=== PATIENT | female | born 1930 | race Caucasian/White ===

== ENCOUNTER 2020-05-24 15:01 | Emergency (ER) | payer MEDICARE, OTHER ==
[2020-05-24] MEDS ORDERED: Diphtheria,Pertussis(Acell),Tetanus Vaccine 0.5 ML Syringe IM ONE (16:10)
[2020-05-24] MEDS ORDERED: Lidocaine 1% 10 ML MDV INJECT ONE (16:10)
--- NOTE | 2020-05-24 16:17 | EDM.PDOC ---
ED HPI GENERAL MEDICAL PROBLEM - General Chief Complaint: Laceration Stated Complaint: HEAD LAC Time Seen by Provider: 05/24/20 15:39 Source of Information: Reports: Patient, RN Notes Reviewed History Limitations: Reports: No Limitations - History of Present Illness INITIAL COMMENTS - FREE TEXT/NARRATIVE: Patient is an 89-year-old female who presents to the ED for a head laceration. The patient states that she fell in her bedroom at roughly 3 AM this morning, she states that she notes she has an issue getting dizzy when she gets up in the middle the night, and this happened last night. She states that she struck her head on the corner of the dresser, she is not having pain anywhere else, she has no headache, no blurred vision or double vision, or no other focal neurological abnormalities appreciated. She has a 3 cm linear laceration on her left frontal forehead, that starts near the hairline, and extends downward in an oblique fashion. Bleeding is controlled at this time, patient states she does take a baby aspirin, but she had not taken any of this in the past 2 days. She was not going to come for any sort of management, but her son come to visit her today, and brought her to the ER to have this fixed. She is not sure of her last tetanus booster, but would take one today if warranted. She was offered a flu vaccine, but states she will follow-up with her providers at the [facility] for this. She is feeling well otherwise, no fevers or chills, cough or shortness of breath, nausea or vomiting or diarrhea. - Related Data Allergies Allergy/AdvReac Type Severity Reaction Status Date / Time No Known Allergies Allergy Verified 05/24/20 15:43 Home Meds: Home Meds Amitriptyline [Elavil] 10 mg PO BEDTIME 05/24/20 [History] Levothyroxine [Synthroid] 50 mcg PO DAILY 05/24/20 [History] Megestrol [Megace] 20 mg PO ASDIRECTED 05/24/20 [History] Metoprolol Succinate [Toprol XL] 12.5 mg PO BID 05/24/20 [History] Potassium Chloride 10 meq PO ASDIRECTED 05/24/20 [History] Tamoxifen [Nolvadex] 1 tab PO ASDIRECTED 05/24/20 [History] Past Medical History Cardiovascular History: Reports: High Cholesterol, Hypertension Gastrointestinal History: Reports: Chronic Constipation Musculoskeletal History: Reports: Back Pain, Chronic Endocrine/Metabolic History: Reports: Hypothyroidism Oncologic (Cancer) History: Reports: Uterine - Past Surgical History HEENT Surgical History: Reports: Cataract Surgery GI Surgical History: Reports: Appendectomy Female Surgical History: Reports: Hysterectomy Social & Family History - Tobacco Use Tobacco Use Status *Q: Never Tobacco User - Caffeine Use Caffeine Use: Reports: Coffee - Recreational Drug Use Recreational Drug Use: No ED ROS GENERAL - Review of Systems Review Of Systems: Comprehensive ROS is negative, except as noted in HPI. ED EXAM, SKIN/RASH Exam: See Below Exam Limited By: No Limitations General Appearance: Alert, WD/WN, No Apparent Distress Eye Exam: Bilateral Eye: EOMI, Normal Inspection, PERRL Ears: Normal External Exam, Normal Canal, Hearing Grossly Normal, Normal TMs Head: Normocephalic Neck: Normal Inspection, Supple, Non-Tender, Full Range of Motion Respiratory/Chest: No Respiratory Distress, Lungs Clear, Normal Breath Sounds, No Accessory Muscle Use, Chest Non-Tender Cardiovascular: Normal Peripheral Pulses, Regular Rate, Rhythm, No Murmur Extremities: Normal Inspection, Normal Capillary Refill Neurological: Alert, Oriented, Normal Cognition, No Motor/Sensory Deficits Psychiatric: Normal Affect, Normal Mood Skin: Warm, Dry, Normal Color, No Rash, Wound/Incision (3 cm linear laceration on the left forehead, starting at the hairline and running in an oblique fashion down the patient's forehead.) ED SKIN PROCEDURES - Laceration/Wound Repair Left Upper Face Appearance: Subcutaneous, Clean Distal NVT: Neuro & Vascular Intact, No Tendon Injury Anesthetic Type: Local Local Anesthesia - Lidocaine (Xylocaine): 1% Plain Local Anesthetic Volume: 4cc Skin Prep: Chlorhexidine (Hibiciens), Saline Exploration/Debridement/Repair: Wound Explored, In a Bloodless Field, Explored to Base, No Foreign Material Found Closed with: Sutures Lac/Wound length In cm: 3 Suture Size: 5-0 # of Sutures: 7 Suture Type: Prolene, Interrupted, Simple Sterile Dressing Applied: Nurse Tetanus Status Addressed: Yes Complications: No Course - Vital Signs Last Recorded V/S: Last Vital Signs Temp 98.2 F 05/24/20 15:57 Pulse 79 05/24/20 15:57 Resp 20 05/24/20 15:57 BP 153/91 H 05/24/20 15:57 Pulse Ox 99 05/24/20 15:57 - Orders/Labs/Meds Orders: Active Orders 24 hr Category Date Time Status Vaccines to be Administered [RC] PER UNIT ROUTINE Care 05/24/20 16:10 Ordered Meds: Medications Discontinued Medications Generic Name Dose Route Start Last Admin Trade Name Rick PRN Reason Stop Dose Admin Diphtheria/Tetanus/Acell Pertussis 0.5 ml 05/24/20 16:10 05/24/20 16:18 Adacel IM 05/24/20 16:11 0.5 ml .ONCE ONE Administration Lidocaine HCl 10 ml 05/24/20 16:10 05/24/20 16:20 Xylocaine 1% INJECT 05/24/20 16:11 10 ml ONETIME ONE Administration Departure - Departure Time of Disposition: 16:16 Disposition: Home, Self-Care 01 Condition: Good Clinical Impression: Forehead laceration Qualifiers: Encounter type: initial encounter Qualified Code(s): S01.81XA - Laceration without foreign body of other part of head, initial encounter - Discharge Information *PRESCRIPTION DRUG MONITORING PROGRAM REVIEWED*: No *COPY OF PRESCRIPTION DRUG MONITORING REPORT IN PATIENT SANDRA: No Instructions: Sutured Wound Care, [id number] Referrals: Jada Cartagena PA-C [Primary Care Provider] - Forms: ED Department Discharge Additional Instructions: You have been evaluated in the ED for your laceration. Sutures will need to stay in for 5-7 days. You may return to the ED or any clinic for removal. Please keep this area clean and dry, you may cleanse with regular soap and water. No vigorous scrubbing. Please try to avoid submerging the affected area in water for prolonged periods of time until the sutures are removed. Watch out for signs of infection like increased redness, swelling, pain at the laceration site, or if you should develop any fevers or chills. Please return to ED if your symptoms change or worsen. Sepsis Event Note (ED) - Evaluation Sepsis Screening Result: No Definite Risk - Focused Exam Vital Signs: Vital Signs Temp Pulse Resp BP Pulse Ox 05/24/20 15:57 98.2 F 79 20 153/91 H 99 - My Orders Last 24 Hours: My Active Orders 05/24/20 16:10 Vaccines to be Administered [RC] PER UNIT ROUTINE - Assessment/Plan Last 24 Hours: My Active Orders 05/24/20 16:10 Vaccines to be Administered [RC] PER UNIT ROUTINE
== END 2020-05-24 17:30 | disposition home or self-care (01) ==
LOC: JD.ED 15:01 → SUPCPDRO 15:01 → JD.ED 17:30
DX: S01.81XA Laceration without foreign body of other part of head, initial encounter (principal); I10 Essential (primary) hypertension; E03.9 Hypothyroidism, unspecified; Z79.899 Other long term (current) drug therapy; Z90.89 Acquired absence of other organs; Z90.710 Acquired absence of both cervix and uterus; W19.XXXA Unspecified fall, initial encounter; Y92.003 Bedroom of unspecified non-institutional (private) residence as the place of occurrence of the external cause
CPT/HCPCS: 12013; 90471; 90715; 99282; J2001

== ENCOUNTER 2020-11-27 17:38 | Emergency (ER) | payer MEDICARE, OTHER ==
--- NOTE | 2020-11-27 18:51 | EDM.PDOC ---
ED HPI GENERAL MEDICAL PROBLEM - General Chief Complaint: Head Injury Stated Complaint: FALL/HEAD INJURY Time Seen by Provider: 11/27/20 18:28 Source of Information: Reports: Patient, Family ([id number]) History Limitations: Reports: No Limitations - History of Present Illness INITIAL COMMENTS - FREE TEXT/NARRATIVE: Mrs. Hussein is a most pleasant 89-year-old woman who now presents to the ED after becoming dizzy while getting something out of the refrigerator around 15:30 to 16:00 this afternoon, and falling at home, striking the back of her head. She states that she fell forward, striking her right knee, and is not really sure how she struck the back of her head, but states that she found herself under a table. There was no loss of consciousness. She has a painful bump to the back right of her head, which she would like to have evaluated, and reports that she has a mild headache. She has no other physical complaints. The patient is not on an anticoagulant. She acknowledges that she does not drink a lot of fluid, and states that she does not make a lot of urine. Here in the ED, the patient's initial BP is found to be elevated at 190/91, otherwise, she is hemodynamically stable, afebrile, saturating 99% on room air. She appears to be comfortable, in no distress. Prior to this afternoon, the patient denies having a recent fever, chills, sore throat, ear pain, nasal or sinus congestion, cough, dyspnea, chest pain, palpitations, nausea, vomiting, constipation, diarrhea, abdominal pain, urinary symptoms, recent weight gain or weight loss, recent bloody bowel movements or black bowel movements, recent joint aches, headaches, or rashes. The patient's PCP is ANA Yung. Her Oncologist is in [place]. Head Pain Score (Numeric/FACES): 4 - Related Data Allergies Allergy/AdvReac Type Severity Reaction Status Date / Time No Known Allergies Allergy Verified 11/27/20 17:50 Home Meds: Home Meds Levothyroxine [Synthroid] 75 mcg PO DAILY 05/24/20 [History] Megestrol [Megace] 20 mg PO ASDIRECTED 05/24/20 [History] Metoprolol Succinate [Toprol XL] 12.5 mg PO BID 05/24/20 [History] Potassium Chloride 10 meq PO ASDIRECTED 05/24/20 [History] Tamoxifen [Nolvadex] 1 tab PO ASDIRECTED 05/24/20 [History] atorvaSTATin [Lipitor] 20 mg PO DAILY 11/27/20 [History] nitrofurantoin macrocrystaL [Nitrofurantoin] 1 cap PO Q12H #9 capsule 11/27/20 [Rx] Past Medical History HEENT History: Reports: Hard of Hearing (wears bilateral hearing aids) Cardiovascular History: Reports: High Cholesterol, Hypertension Endocrine/Metabolic History: Reports: Hypothyroidism Oncologic (Cancer) History: Reports: Uterine (s/p hysterectomy, on Tamoxifen) - Past Surgical History HEENT Surgical History: Reports: Cataract Surgery (bilateral) GI Surgical History: Reports: Appendectomy Female Surgical History: Reports: Hysterectomy (complete) Social & Family History - Tobacco Use Tobacco Use Status *Q: Never Tobacco User - Caffeine Use Caffeine Use: Reports: None - Alcohol Use Alcohol Use History: No - Recreational Drug Use Recreational Drug Use: No - Living Situation & Occupation Living situation: Reports: , Alone Occupation: Retired ED ROS GENERAL - Review of Systems Review Of Systems: Comprehensive ROS is negative, except as noted in HPI. GI/Abdominal: Reports: Constipation (chronic) Musculoskeletal: Reports: Back Pain (chronic) ED EXAM, HEAD INJURY - Physical Exam Exam: See Below Exam Limited By: No Limitations General Appearance: Alert, WD/WN, No Apparent Distress Head: Normocephalic, Scalp Hematoma (posterior right, fairly large), Scalp Tenderness (posterior right) Eyes: Bilateral Eye: EOMI, Normal Inspection (s/p cataract surgery) Ears: Normal External Exam, Normal Canal, Normal TMs, Hearing Loss (significant) Nose: Normal Inspection, Normal Mucousa, No Blood Throat/Mouth: Normal Inspection, Normal Teeth, Normal Gums, Normal Oropharynx, Normal Voice, No Airway Compromise, Other (Small purple lesion lower lip, right of center) Neck: Non-Tender, Full Range of Motion, Normal Alignment, Normal Inspection Respiratory: No Respiratory Distress, Lungs Clear, Normal Breath Sounds, No Accessory Muscle Use Cardiovascular: Normal Peripheral Pulses, Regular Rate, Rhythm, No Edema, No Gallop, No JVD, No Murmur, No Rub GI/Abdominal Exam: Normal Bowel Sounds, Soft, Non-Tender, No Organomegaly, No Distention, No Abnormal Bruit, No Mass Back Exam: Full Range of Motion, Normal Inspection, NT Extremities: Normal Inspection, Normal Range of Motion, Normal Capillary Refill Neurologic: trouble clerk II-XII nml As Tested, No Motor/Sensory Deficits, Alert, Oriented x 3 Skin: Normal Color, Warm/Dry #1 Interpretation EKG Date: 11/27/20 Time: 19:55 Rhythm: NSR Rate (Beats/Min): 91 [place]: Normal P-Wave: Present QRS: RBBB ST-T: Normal QT: Normal Comparison: NA - No Prior EKG Course - Vital Signs Last Recorded V/S: Last Vital Signs Temp 36.4 C 11/27/20 17:48 Pulse 85 11/27/20 17:48 Resp 16 11/27/20 17:48 BP 190/91 H 11/27/20 17:48 Pulse Ox 99 11/27/20 17:48 Orthostatic Blood Pressure [ 143/88 Standing] Orthostatic Blood Pressure [ 182/92 Sitting] Orthostatic Blood Pressure [ 175/86 Supine] - Orders/Labs/Meds Orders: Active Orders 24 hr Category Date Time Status EKG Documentation Completion [RC] STAT Care 11/27/20 18:46 Active Orthostatic Vital Signs [RC] STAT Care 11/27/20 18:46 Active Orthostatic Vital Signs [RC] STAT Care 11/27/20 20:10 Active Sodium Chloride 0.9% [Normal Saline] 1,000 ml Med 11/27/20 20:09 Active IV ONETIME Medication Orders Sodium Chloride (Normal Saline) 1,000 mls @ 999 mls/hr IV ONETIME ONE Stop: 11/27/20 21:09 Labs: Laboratory Tests 11/27/20 11/27/20 11/27/20 Range/Units 19:14 19:26 19:26 WBC 7.50 (3.98-10.04) K/mm3 RBC 3.92 L (3.98-5.22) M/mm3 Hgb 11.7 (11.2-15.7) gm/dl Hct 37.5 (34.1-44.9) % MCV 95.7 H (79.4-94.8) fl MCH 29.8 (25.6-32.2) pg MCHC 31.2 L (32.2-35.5) g/dl RDW Std Deviation 45.8 (36.4-46.3) fL Plt Count 184 (182-369) K/mm3 MPV 9.9 (9.4-12.3) fl Neutrophils % (Manual) 61 H (40-60) % Band Neutrophils % 0 (0-10) % Lymphocytes % (Manual) 26 (20-40) % Atypical Lymphs % 0 % Monocytes % (Manual) 9 (2-10) % Eosinophils % (Manual) 4 (0.7-5.8) % Basophils % (Manual) 0 L (0.1-1.2) Platelet Estimate Adequate RBC Morph Comment Normal Sodium 146 H (136-145) mEq/L Potassium 4.0 (3.5-5.1) mEq/L Chloride 111 H (98-107) mEq/L Carbon Dioxide 22 (21-32) mEq/L Anion Gap 17.0 H (5-15) BUN 28 H (7-18) mg/dL Creatinine 1.1 H (0.55-1.02) mg/dL Est Cr Clr Drug Dosing 24.90 mL/min Estimated GFR (MDRD) 47 (>60) mL/min BUN/Creatinine Ratio 25.5 H (14-18) Glucose 117 H (83-115) mg/dL Calcium 8.8 (8.5-10.1) mg/dL Magnesium 2.4 (1.8-2.4) mg/dl Total Bilirubin 0.3 (0.2-1.0) mg/dL AST 27 (15-37) U/L ALT 41 (14-59) U/L Alkaline Phosphatase 52 (46-116) U/L Troponin I < 0.017 (0.00-0.056) ng/mL Total Protein 6.4 (6.4-8.2) g/dl Albumin 3.4 (3.4-5.0) g/dl Globulin 3.0 gm/dL Albumin/Globulin Ratio 1.1 (1-2) Urine Color Yellow (Yellow) Urine Appearance Clear (Clear) Urine pH 5.5 (5.0-8.0) Ur Specific [place] > or = 1.030 (1.005-1.030) Urine Protein 1+ H (Negative) Urine Glucose (UA) Negative (Negative) Urine Ketones Negative (Negative) Urine Occult Blood 3+ H (Negative) Urine Nitrite Negative (Negative) Urine Bilirubin Negative (Negative) Urine Urobilinogen 0.2 (0.2-1.0) Ur Leukocyte Esterase Trace H (Negative) Urine RBC 30-40 H (0-5) /hpf Urine WBC 10-20 H (0-5) /hpf Ur Squamous Epith Cells 0-5 (0-5) /hpf Amorphous Sediment Few H (NOT SEEN) /hpf Urine Bacteria Few (FEW) /hpf Urine Mucus Not seen (FEW) /hpf Meds: Medications Generic Name Dose Route Start Last Admin Trade Name Rick PRN Reason Stop Dose Admin Sodium Chloride 1,000 mls @ 999 mls/hr 11/27/20 20:09 Normal Saline IV 11/27/20 21:09 ONETIME ONE - Re-Assessments/Exams Free Text/Narrative Re-Assessment/Exam: 11/27/20 18:47 As above, the patient felt dizzy and fell at home, striking the back right of her head. No loss of consciousness, although she does report having a mild headache. Her neurologic examination is within normal limits, however, I have ordered a work-up that includes orthostatics, several blood tests, a urinalysis by quick catheter, a CT of the head without contrast, and an ECG. 11/27/20 19:38 CT of the head without contrast is read by Dr. Coates as: 1. Senescent changes noted above. 2. Small air-fluid levels within the sphenoid sinus most likely relating to retained secretions. No other paranasal sinus findings are seen. 3. Soft tissue swelling and soft tissue hematoma noted within the right posterior scalp. 4. No acute intracranial abnormality is appreciated. 11/27/20 20:10 The patient is orthostatic. Her CBC is unremarkable. Her CMP is remarkable for slight hypernatremia of 146, and an anion gap slightly elevated at 17.0, but with a bicarbonate normal at 22. Her BUN/Cr are mildly elevated at 28/1.1, she has slight hyperglycemia of 117, with the remainder of her CMP being unremarkable. Her magnesium level is within normal limits at 2.4. Her troponin is undetectably low. Her urinalysis is remarkable for 3+ occult blood with 30-40 RBCs, trace leukocyte esterase with 10-20 WBCs, nitrate negative with few bacteria, and 0-5 squamous epithelial cells. Based on the above, I have ordered a urine culture, and will start the patient on nitrofurantoin. I have ordered a 1 L bolus of NS, after which orthostatics will be repeated. 11/27/20 20:17 Notified by Olga ECHAVARRIA that the patient is refusing an IV fluid. She would prefer to drink Gatorade, which I think is fine. That being the case, the patient can be discharged home with a prescription for nitrofurantoin and the recommendation that she stay adequately hydrated. 11/27/20 20:29 The above was discussed with the patient and her [id number]. I would like the patient to follow-up at the [facility] on Tuesday, to have them check on the urine culture result. Departure - Departure Time of Disposition: 20:29 Disposition: Home, Self-Care 01 Condition: Good Clinical Impression: Fall at home, Cystitis, Hematoma of scalp, Orthostasis - Discharge Information *PRESCRIPTION DRUG MONITORING PROGRAM REVIEWED*: Not Applicable *COPY OF PRESCRIPTION DRUG MONITORING REPORT IN PATIENT SANDRA: Not Applicable Referrals: Jada Cartagena PA-C [Primary Care Provider] - Forms: ED Department Discharge Additional Instructions: You were seen in the emergency room after becoming dizzy and falling at home, striking the back right of your head. Work-up in the ER included positional blood pressure checks, several blood tests, a urinalysis, a CT of your head, and an ECG. Your work-up found that your blood pressure dropped excessively between lying and standing, a condition known as orthostasis. IV fluid was offered, but you elected to drink some Gatorade, instead. Going forward, we recommend that you stay adequately hydrated. In the short- term, Gatorade or Powerade is best. One way to tell if you are adequately hydrated or not is based on the color of your urine. You want your urine to be light-colored, like lemonade, not dark yellow, like apple juice. Your urinalysis indicates that you have a urinary tract infection. A sample of your urine has been sent for culture. You have been started on the antibiotic nitrofurantoin, and a prescription for nitrofurantoin has been sent to the [facility]. Take 1 tablet of nitrofurantoin every 12 hours, starting tomorrow morning, 11/28/2020, as prescribed. Finish the entire prescription unless told otherwise by your provider. We recommend that you follow-up with your PCP, ANA Yung, first thing Tuesday morning, 12/01/2020, to have them check on your urine culture results, to make sure that you are on the correct antibiotic. If any other problems, please do not hesitate to return to the ER. Sepsis Event Note (ED) - Evaluation Sepsis Screening Result: No Definite Risk - Focused Exam Vital Signs: Vital Signs Temp Pulse Resp BP Pulse Ox 11/27/20 17:48 36.4 C 85 16 190/91 H 99 - My Orders Last 24 Hours: My Active Orders 11/27/20 18:46 EKG Documentation Completion [RC] STAT Orthostatic Vital Signs [RC] STAT 11/27/20 20:09 Sodium Chloride 0.9% [Normal Saline] 1,000 ml IV ONETIME 11/27/20 20:10 Orthostatic Vital Signs [RC] STAT - Assessment/Plan Last 24 Hours: My Active Orders 11/27/20 18:46 EKG Documentation Completion [RC] STAT Orthostatic Vital Signs [RC] STAT 11/27/20 20:09 Sodium Chloride 0.9% [Normal Saline] 1,000 ml IV ONETIME 11/27/20 20:10 Orthostatic Vital Signs [RC] STAT
--- NOTE | 2020-11-27 19:30 | CT ---
Head CT Technique: Multiple axial sections through the brain were obtained. Intravenous contrast was not utilized. Reconstructed coronal and sagittal images were obtained. Comparison: No prior intracranial imaging is available. Findings: Soft tissue swelling and small soft tissue hematoma is seen within the posterior right scalp. Ventricles along with basal cisterns and sulci over the convexities are moderately enlarged. Diffuse diminished density is noted within the periventricular white matter, basal ganglia and subcortical white matter which has the appearance of small vessel ischemic demyelination change. Slight basal ganglia calcification is noted. Minimal decreased density is seen within the morales compatible with additional small vessel ischemic demyelination change. Atherosclerotic calcification is seen within the carotid siphon. No evidence of intracranial hemorrhage or mass-effect. No midline shift is seen. Bone window settings were reviewed which show the visualized mastoid sinuses to appear clear. Visualized paranasal sinuses show a small air-fluid level within the left sphenoid sinus. No additional paranasal sinus abnormality is appreciated. No acute calvarial abnormality is appreciated. Impression: 1. Senescent change as noted above. 2. Small air-fluid level within the sphenoid sinus most likely relating to retained secretions. No other paranasal sinus findings are seen. 3. Soft tissue swelling and soft tissue hematoma noted within the right posterior scalp. 4. No acute intracranial abnormality is appreciated. Diagnostic code #2
[2020-11-27] MEDS ORDERED: Sodium Chloride 0.9% 1,000 ML IV ONE (20:09)
[2020-11-27] MEDS ORDERED: Nitrofurantoin Monohydrate/Macrocrystalline 100 MG Cap PO STA (20:25)
== END 2020-11-27 20:50 | disposition home or self-care (01) ==
LOC: JD.ED 17:38
DX: S00.03XA Contusion of scalp, initial encounter (principal); N30.90 Cystitis, unspecified without hematuria; E78.00 Pure hypercholesterolemia, unspecified; I10 Essential (primary) hypertension; E03.9 Hypothyroidism, unspecified; Z79.899 Other long term (current) drug therapy; W22.8XXA Striking against or struck by other objects, initial encounter; Y92.009 Unspecified place in unspecified non-institutional (private) residence as the place of occurrence of the external cause
CPT/HCPCS: 36415; 70450; 80053; 81001; 83735; 84484; 85007; 85027; 87086; 93005; 99284; A9270; 93010